=== PATIENT | female | born 1940 | race African-American/Black ===

== ENCOUNTER 2019-10-27 23:40 | Emergency (ER) | payer OTHER ==
[~2019-10-27] VITALS: Ht 172.7 cm; Wt 68.0 kg
[2019-10-28] MEDS ORDERED: ASPIRIN 81MG TABLET PO ONE
[2019-10-28 00:31] LABS: BASOPHILS % 0.6 % (0.0-2.0); EOSINOPHILS % 3.9 % (0.0-5.0); HEMATOCRIT. 42.6 % (36.0-48.0); HEMOGLOBIN. 13.7 g/dL (12.0-16.0); LYMPHOCYTES % 53.6 % (20.0-50.0); MEAN CORPUSCULAR HEMOGLOBIN 27.1 pg (28.0-32.0); MEAN CORPUSCULAR VOLUME 84.6 fL (81.0-99.0); MEAN PLATELET VOLUME 9.6 fl (7.4-10.4); MONOCYTES % 10.1 % (2.0-8.0); NEUTROPHILS % 31.8 % (40.0-76.0); PLATELET 74 x1000/uL (130-400); RED BLOOD CELL COUNT 5.04 mill/uL (4.2-5.4); RED CELL DISTRIBUTION WIDTH 20.1 % (11.6-14.6)
[2019-10-28 00:37] LABS: CHLORIDE 113 mEq/L (98-107)
[2019-10-28] MEDS ORDERED: MORPHINE SULFATE 4 MG/ML CPJ (NOT FOR IM USE) IV ONE (02:30)
[2019-10-28 03:34] LABS: INR 2.6; PARTIAL THROMBOPLASTIN TIME 45.1 sec (23.4-31.0); PROTHROMBIN TIME 25.2 sec (9.6-11.0)
[2019-10-28 05:56] VITALS: BP 126/71
== END 2019-10-28 07:41 | disposition short-term general hospital (02) ==
LOC: ER 23:40
DX: R07.89 Other chest pain (principal); R10.12 Left upper quadrant pain; J44.9 Chronic obstructive pulmonary disease, unspecified; E78.00 Pure hypercholesterolemia, unspecified; I25.2 Old myocardial infarction; I50.9 Heart failure, unspecified; Z99.81 Dependence on supplemental oxygen
CPT/HCPCS: 36415; 71045; 74176; 80053; 83880; 84484; 85025; 93005; 99285